=== PATIENT | male | born 1965 | race Caucasian/White ===

== ENCOUNTER 2019-10-20 14:32 | Outpatient (CLI) | payer OTHER, MEDICARE, SELFPAY | END 2019-10-20 14:33 | disposition home or self-care (01) | PROVIDERS: Family Provider Internal Medicine; PCP Internal Medicine; Visit Provider Orthopaedic Surgery | DX: S43.491A Other sprain of right shoulder joint, initial encounter (principal); X58.XXXA Exposure to other specified factors, initial encounter ==

== ENCOUNTER → 2019-12-08 07:24 | Day surgery (SDC) | payer OTHER, SELFPAY ==
[2019-12-07 13:41] VITALS: BMI 43.7
[2019-12-08] VITALS (20 sets, daily range): BP systolic 136–199; BP diastolic 85–123; PULSE 62–86; RESP 14–20; TEMP 36.1–36.9; O2SAT 96–98
[2019-12-08] MEDS: metoprolol tartrate 50 mg Tablet 100 MG PO (08:00)
[2019-12-08] MEDS: sodium chloride 0.9% 1,000 ML 30 ML IV (08:21)
--- NOTE | 2019-12-08 08:27 | ANES.PREANE2 ---
Pre-Anesthetic Assessment Pre-Anesthetic Assessment: Height/Weight: Height 1.85 m Weight 150.139 kg Preop Diagnosis: Tear right rotator cuff Proposed Procedure: Operation Date: 12/08/19 08:55 Proposed Procedures p Right Shoulder Arthroscopy 12205 [id number] S46.011A M19.011 M75.41(Right) - Duke Stuart MD s Rotator Cuff Repair and subacromial decompression ([id number])(Right) - Duke Stuart MD Social: Packs per day: 1.5 Pack years: 50+ Comment: quit 5y Exam: Pre-Anes Outpt Exam: alert, oriented x 3, clear to auscultation bilaterally and regular rate & rhythm Airway: Submandibular: WNL Cervical ROM: Other MP: 3 CV/HEM: CV/HEM: HTN Comments: 1y Metabolic: Metabolic: DM (rx'd 1y, normally 110-140), Morbid obesity and Thyroid Neuropsych: Neuropsych: [place]MAN Anesthetic Plan: ASA status: 3 Anesthesia: General and Regional (specify below) Meds/Allergies Current Medications: Current Medications Generic Name Dose Route Start Last Admin Trade Name Freq PRN Reason Stop Dose Admin Sodium Chloride 1,000 mls @ 30 ml s/hr 12/08/19 07:15 12/08/19 08:21 Sodium Chloride 0.9% IV 12/09/19 07:14 30 mls/hr .Q24H IFEANYI Administration PFSH Anesthesia PFSH: Social History Smoking and tobacco status: never smoked Alcohol intake: current Alcohol intake frequency: holidays/special occasions only Data Anesthesia Cardiac Studies: No Data to Display
[2019-12-08] MEDS: midazolam 1 mg/mL INJ 5 ML 5 MG IV (09:05)
--- NOTE | 2019-12-08 09:24 | ANES.PROC ---
Anesthesia Procedures Procedure/Date: 12/08/19 Right Innerscalene Block Procedure Narrative: R&B's of right innerscalene block disc'd. Verbal and written consent obtained. Versed 2+1+1+1+1mg, Fentanyl 50ug. US utilized to identify right innerscalene groove, KONSTANTIN. \nerve stimulator at 0.8 mAMPS. 40cc Ropviciane 0.5% + Lido 2% with epi in 3:1 mixture in 5cc increments. Nerve Block ^: Nerve Block 1: Main Anesthesia: general anesthesia Time Out Performed: Yes Consent: requested by attending/covering physician, from patient, risks and benefits reviewed and patient agrees to proceed Nerve block location: interscalene Anesthesia monitors applied: pulse oximetry and oxygen Nerve block position: supine Anesthetic Used: lidocaine 2%, ropivicaine 0.5% and with epi Amount of anesthesia used (mL): 40 Ultrasound used to: visualize and ID interscalene groove Nerve Stimulator Used?: Yes Interscalene/Femoral BLK: 2 stimuplex 22 g needle used for position and inplane approach Injection: neg aspiration of heme Patient Tolerated Procedure: well and no complications Complications: none
--- NOTE | 2019-12-08 09:36 | W.PM.OPSUD ---
Surgery/Procedure H&P Update DATE OF PROCEDURE: December 08, 2019 DATE H&P PERFORMED: 11/18/19 H&P UPDATE INFORMATION: I have reviewed H&P completed within last 30 days PREOP DIAGNOSIS: Tear right rotator cuff PRIMARY INDICATION FOR PROCEDURE: Pain and weakness right rotator cuff with MRI evidence of rotator cuff tear PLANNED PROCEDURE: Operation Date: 12/08/19 08:55 Proposed Procedures p Right Shoulder Arthroscopy [id number] S46.011A M19.011 M75.41(Right) - Duke Stuart MD s Rotator Cuff Repair and subacromial decompression ([id number])(Right) - Duke Stuart MD
[2019-12-08] MEDS: midazolam 1 mg/mL INJ 5 ML 5 MG IVP (09:38)
--- NOTE | 2019-12-08 11:56 | P.OP_ITS ---
Operative Report Date of procedure: December 08, 2019 Pre-op Diagnosis: Tear right rotator cuff Post-op diagnosis: same Post-op Findings: High-grade bursal tear right rotator cuff Procedure Done: Arthroscopic repair right rotator cuff with bio inductive implant Implants: Ford and Nephew Regeneten implant Pathology: none sent Surgeon: Duke Stuart Anesthesia: General and Nerve Block (Interscalene) Estimated blood loss (mL): 25 Complications: None Findings: The patient had a high-grade bursal tear of the leading edge of his supraspinatus tendon involving approximately 75% of the thickness of the tendon with retraction approximately 1.5 cm. And dimensions approximately a centimeter and a half from anterior to posterior. He had prominent subacromial spurring Condition: stable Disposition: PACU Brief History: The patient is a 54-year-old male with right shoulder pain and a rotator cuff tear that began after a fall Procedure: The patient was given an interscalene block in holding. He was taken to the operating room and positioned in the lateral position, prepped and draped with his right arm and 20 pounds of traction due to its size. A timeout was performed. A scope was placed in the posterior glenohumeral joint and anterior working portal placed anteriorly. His biceps tendon was and labrum were probed and found to be healthy. The articular side of his rotator cuff appeared to be healthy. The scope was then directed to the subacromial space and a anterior lateral working portal made. Bursal tissue was removed revealing the high-grade bursal tear. The leading edge of the acromion was outlined with a Ford and Nephew Werewolf probe. A 5.5 mm acromionizer was introduced and approximately 5 mm of anterior and inferior acromion removed. Attention was then focused on the rotator cuff. The acromionizer was used to debride the footprint of the supraspinatus tendon. Through a small lateral stab wound a 4.5 mm helical anchor was placed in the lateral footprint. A Ford and [employer] FirstPass suture passer was used to shuttle 1 limb of Ultratape through the far posterior rotator cuff bursal flap approximately 8 mm from its edge. The free end of Ultratape was passed approximately 7 mm anterior to the first. A second helical anchor was placed and the ultra tape sutures passed in identical fashion. They were secured to the lateral portal with a sliding Hendrix knot and alternating half hitches bringing the rotator cuff down to bone. Through an anterior lateral slightly lower portal a [employer] Nephew Regeneten implant was placed. It was fixed laterally with 2 bone kimber and medially anteriorly and posteriorly with soft tissue kimber covering the repaired rotator cuff. The shoulder was irrigated with saline. Portals were closed with 3-0 Prolene. Sterile dressings were applied. Patient was extubated and taken recovery room in stable condition in a sling.
--- NOTE | 2019-12-08 12:03 | SUR.PHASEI ---
1155- RECEIVED PATIENT IN PACU FROM OR VIA [facility]. RESP ARE EVEN AND NONLABORED. SIMPLE MASK APPLIED AT 6LPM, SAT 99%. ORAL AIRWAY IN PLACE. RUE IS WARM TO TOUCH WITH CAPILLARY REFILL <3 SECONDS. DRESSING DRY AND INTACT WITH IMMOBILIZER IN PLACE. NO S/S PAIN OR NAUSEA
--- NOTE | 2019-12-08 12:07 | SUR.PHASEI ---
1206- ORAL AIRWAY OUT, SIMPLE MASK IN PLACE AT 6LPM, SAT 97%
[2019-12-08] MEDS: hyDRALAzine 20 mg/mL INJ 1 mL 5 MG IVP ×2 (12:15→12:20)
[2019-12-08] MEDS: morphine 4 mg/mL SDV 1 mL IVP (13:28)
[2019-12-08] MEDS: oxyCODONE 5 mg IR Tab/Cap PO (13:33)
--- NOTE | 2019-12-08 15:38 | PC.NURSE ---
PT HAD CONSISTENT HIGH BLOOD PRESSURE DURING HIS STAY AT [facility] [place] TODAY. IN PACU PHASE 11 [address] RODRIGUEZ WAS CONSULTED AND HE EVALUATED PT AND ORDERED MEDICATIONS. I ALSO CONSULTED THE PT'S PRIMARY, SAMEERA, DR GARRETT'S NURSE AT THE [place] TO INFORM HER OF THE BLOOD PRESSURE ISSUES DURING THIS HOSPITAL STAY. SAMEERA STATED SHE WOULD CALL THE PT FOR A FOLLOW UP APPT FOR TOMORROW. PT WAS GIVEN A TOTAL OF HYDRALAZINE 30 MG IVP AND LABETALOL 10MG IVP DURING RECOVERY PACU PHASE 11. PT STATED HE WAS NON SYMPTOMATIC WITH THESE BP'S, NORMALLY HE WOULD FEEL PALPITATIONS WITH HIGHER PRESSURES BUT DID NOT TODAY. PT STATED HE FELT FINE AND KNEW WHAT SX TO GO TO THE ER FOR. PT DISCHARGED WITH , LAUGHING, JOKING AND TALKING.
[2019-12-08] MEDS: hyDRALAzine 20 mg/mL INJ 1 mL 10 MG IVP (16:11)
[2019-12-08] MEDS: labetalol 5 mg/mL SDV 20mL 10 MG IVP (16:12)
== END | disposition home or self-care (01) ==
PROVIDERS: Family Provider Internal Medicine; PCP Internal Medicine; Visit Provider Orthopaedic Surgery
PROC: (CPT 29805; principal; 2019-12-08 08:55)
PROC: (CPT 29826; 2019-12-08 08:55)
DX: M75.101 Unspecified rotator cuff tear or rupture of right shoulder, not specified as traumatic (principal); F17.210 Nicotine dependence, cigarettes, uncomplicated; I10 Essential (primary) hypertension; E11.9 Type 2 diabetes mellitus without complications; E66.01 Morbid (severe) obesity due to excess calories; Z68.41 Body mass index [BMI] 40.0-44.9, adult
CPT/HCPCS: 29826; 29827; 12345; 96374; 96375; C1713; J0330; J0360; J2001; J2250; J2270; J2405; J2704; J2795; J3010; J3490; J7030